=== PATIENT | male | born 1995 | race African-American/Black ===

== ENCOUNTER 2019-05-16 08:31 | Emergency (ER) | payer BC ==
[~2019-05-16] VITALS: Ht 175.3 cm; Wt 77.0 kg
[2019-05-16 08:46] VITALS: BP 99/64
== END 2019-05-16 13:00 | disposition left against medical advice (07) ==
LOC: ER 08:31
DX: R07.89 Other chest pain (principal); Z53.21 Procedure and treatment not carried out due to patient leaving prior to being seen by health care provider
CPT/HCPCS: 93005